=== PATIENT | female | born 1975 | race Caucasian/White ===

== ENCOUNTER 2018-02-23 10:47 | Emergency (ER) | payer OTHER, MEDICAID, BC ==
[2018-02-23] MEDS: HYDROCODONE/APAP (5/325) TAB PO (11:36)
== END 2018-02-23 14:49 | disposition home or self-care (01) ==
LOC: FTE 10:47
DX: S82.431A Displaced oblique fracture of shaft of right fibula, initial encounter for closed fracture (principal); S99.912A Unspecified injury of left ankle, initial encounter; W18.39XA Other fall on same level, initial encounter; Y92.89 Other specified places as the place of occurrence of the external cause
CPT/HCPCS: 29515; 73590; 73610; 73610-RT; 99284-25